=== PATIENT | female | born 1965 | race Caucasian/White ===

== ENCOUNTER 2021-12-01 21:13 | Emergency (ER) | payer MEDICAID ==
[~2021-12-01] VITALS: Ht 154.9 cm; Wt 93.0 kg
[2021-12-01 21:15] VITALS: BP 158/85
--- NOTE | 2021-12-01 21:21 | NUR ---
Dr. Rocha examing patient.
[2021-12-01] MEDS ORDERED: MORPHINE SULFATE 2 MG/ML SYR IVP ONE (21:30)
[2021-12-01] MEDS ORDERED: ONDANSETRON 4 MG/2 ML VIAL IVP ONE (21:30)
[2021-12-01] MEDS ORDERED: NACL 0.9% 1,000 ML IV SCH (21:30)
--- NOTE | 2021-12-01 21:38 | NUR ---
PT TAKEN TO BED 09 PLACED IN GOWN AND ON OBSTETRICIAN GYNECOLOGIST
--- NOTE | 2021-12-01 21:58 | NUR ---
IV 20G ESTAB TO RT AC. PT MEDICATED PER ERMD ORDERS.
--- NOTE | 2021-12-01 22:01 | NUR ---
56 YO F BIB SELF WITH C/C OF 9/10 LOWER ABD PAIN [id number]. PT REPORTS ABD BLOATING THAT WORSENS EVERYTIME THE PT HAS SOMETHING TO EAT. PT STATES D/T TO THIS HE TRIES NOT TO EAT. PT STATES HE HAS NOT BEEN TAKING MEDICATION FOR PAIN. REPORTS HE IS ABLE TO HAVE BM BUT FEELS IT IS NOT ENOUGH. HX:MULTIPLE TUMORS NKA
[2021-12-01 22:07] LABS: BASOPHILS % (AUTO) 0.7 % (0.0-2.0); EOSINOPHILS # (AUTO) 0.2 K/uL (0-0.4); EOSINOPHILS % (AUTO) 2.6 % (0.0-4.0); HEMATOCRIT 44.2 % (36-48); HEMOGLOBIN 14.6 g/dL (12.0-16.0); LYMPHOCYTES # (AUTO) 2.6 K/uL (2.5-16.5); LYMPHOCYTES % (AUTO) 41.6 % (20.5-51.1); MEAN CORPUSCULAR HEMOGLOBIN 29 pg (27-31); MEAN CORPUSCULAR HGB CONC 33 g/dL (33-37); MEAN CORPUSCULAR VOLUME 86.4 fL (80-94); MONOCYTES # (AUTO) 0.8 K/uL (0.8-1.0); MONOCYTES % (AUTO) 12.1 % (1.7-9.3); NEUTROPHILS # (AUTO) 2.7 K/uL (1.8-7.7); PLATELET COUNT (AUTO) 266 K/uL (140-450); RED BLOOD CELL COUNT(AUTO) 5.12 MIL/uL (4.20-5.40); RED CELL DISTRIBUTION WIDTH 15.5 % (11.6-13.7); WHITE BLOOD COUNT (AUTO) 6.2 K/uL (4.8-10.8)
[2021-12-01 22:18] LABS: ALBUMIN 3.9 g/dL (3.4-5.0); ANION GAP 12.2 (8-16); CARBON DIOXIDE 28.5 mmol/L (21-32); CREATININE 1.1 mg/dL (0.6-1.3); POTASSIUM 3.7 mmol/L (3.5-5.1); TOTAL BILIRUBIN 0.2 mg/dL (0.0-1.0)
--- NOTE | 2021-12-01 23:08 | NUR ---
PT TAKEN TO CT
--- NOTE | 2021-12-01 23:20 | NUR ---
PT RETURN FROM CT
[2021-12-01] MEDS ORDERED: DICYCLOMINE HCL LIQUID 20 MG, ALUMINUM HYD/MAG/SIMETHICONE 30 ML, LIDOCAINE VISCOUS 2% ... PO ONE ×3 (23:55)
[2021-12-01] MEDS ORDERED: PANTOPRAZOLE 40 MG INJ VIAL IVP ONE (23:55)
[2021-12-01] MEDS ORDERED: PANT40EC PO (23:58)
[2021-12-02] MEDS ORDERED: ALUMINUM HYD/MAG/SIMETHICONE 30 ML UDC ONE
[2021-12-02] MEDS ORDERED: DICYCLOMINE HCL LIQUID 10 MG/5 ML UDC ONE (00:01)
[2021-12-02 00:30] VITALS: BP 146/90
--- NOTE | 2021-12-02 00:30 | NUR ---
Patient discharged with v/s stable. Written and verbal after care instructions given and explained. Patient alert, oriented and verbalized understanding of instructions. Ambulatory with steady gait. All questions addressed prior to discharge. ID band removed. Patient advised to follow up with PMD. Rx of PROTONIX given. Patient educated on indication of medication including possible reaction and side effects. Opportunity to ask questions provided and answered. VSS, A/OX4, AMBULATORY, UNLABORED BREATHING, AND CALM DEMEANOR.
[2021-12-02 01:01] LABS: APPEARANCE,URINE CLEAR (CLEAR); BILIRUBIN,URINE NEGATIVE (NEGATIVE); BLOOD, URINE NEGATIVE (NEGATIVE); COLOR,URINE YELLOW (YELLOW); LEUKOCYTE ESTERASE ,URINE NEGATIVE (NEGATIVE); NITRITE, URINE NEGATIVE (NEGATIVE); UGLUCOSE NEGATIVE (NEGATIVE)
== END 2021-12-02 00:30 | disposition home or self-care (01) ==
LOC: MED 21:13
DX: R10.30 Lower abdominal pain, unspecified (principal); R11.2 Nausea with vomiting, unspecified; Z90.710 Acquired absence of both cervix and uterus; Z79.899 Other long term (current) drug therapy; Z98.890 Other specified postprocedural states
CPT/HCPCS: 36415; 74177; 80053; 81003; 85025; 96361; 96374; 96375; 99285; C9113; J2270; J2405; J7030; Q9967